=== PATIENT | male | born 1980 | race Asian ===

== ENCOUNTER 2020-12-11 03:10 | Emergency (ER) | payer MEDICAID ==
[~2020-12-11] VITALS: Ht 162.6 cm; Wt 79.5 kg
[2020-12-11 03:16] VITALS: BP 125/85
[2020-12-11] MEDS ORDERED: SULF1TAB49 PO (03:48)
[2020-12-11] MEDS ORDERED: TETanus/Pertussis (Acell)/Diphther VAC/PF (Tdap-Adult) 0.5ml syringe IMVAC ONE (03:50)
== END 2020-12-11 04:21 | disposition home or self-care (01) ==
LOC: ER 03:11
DX: S50.862A Insect bite (nonvenomous) of left forearm, initial encounter (principal); Z79.2 Long term (current) use of antibiotics; Z20.3 Contact with and (suspected) exposure to rabies; W57.XXXA Bitten or stung by nonvenomous insect and other nonvenomous arthropods, initial encounter; Y93.89 Activity, other specified; Y92.89 Other specified places as the place of occurrence of the external cause; Y99.8 Other external cause status
CPT/HCPCS: 90471; 90715; 99283